=== PATIENT | female | born 1940 | race African-American/Black ===

== ENCOUNTER 2017-05-17 11:09 | Emergency (ER) | payer OTHER ==
[~2017-05-17] VITALS: Ht 162.6 cm; Wt 85.0 kg
[~2017-05-17 11:09] MED LIST: ALPR0.5T3 PO; ASPI1TAB57 PO; CENTCHW3 PO; CHOL5000 PO; CLAR10CA3 PO; ESTR2TAB PO; FISH1000; FURO80TA PO; GABA300C5 PO; L-ME1CAP2 PO; LISI40TA PO; MECL-62 PO; PIOG15TA5 PO; SITA50TA4 PO; ZOCO40TA PO
[2017-05-17 11:10] VITALS: BP 169/74; PULSE 66; RESP 16; TEMP 97.8; O2SAT 97
[2017-05-17] MEDS ORDERED: FURO40TA PO (11:34)
[2017-05-17] MEDS ORDERED: SITA50TA4 PO (11:34)
[2017-05-17] MEDS ORDERED: TRAM50TA PO (11:34)
[2017-05-17] MEDS ORDERED: SODIUM CHLORIDE 0.9% FLUSH 10 ML FLUSH IVF PRN (12:00)
[2017-05-17] MEDS ORDERED: oxyCODONE/ACETAMINOPHEN 5 MG/325 MG TAB PO ONE (12:00)
[2017-05-17] MEDS ORDERED: KETOROLAC TROMETHAMINE 30 MG/ML (IVP) VIAL IV PUSH ONE (12:00)
[2017-05-17 12:11] LABS: HEMATOCRIT 33.2 % (35.0-46.0); HEMOGLOBIN 10.5 GM/DL (11.6-15.3); MEAN CORPUSCULAR HEMOGLOBIN 27.3 PG (27.0-34.0); MEAN CORPUSCULAR HGB CONC 31.8 % (32.0-36.0); MEAN PLATELET VOLUME 7.7 FL (7.0-11.0); PLATELET COUNT 323 TH/MM3 (150-450); RED BLOOD COUNT 3.86 MIL/MM3 (4.00-5.30); RED CELL DISTRIBUTION WIDTH 13.8 % (11.6-17.2); WHITE BLOOD COUNT 7.2 TH/MM3 (4.0-11.0)
[2017-05-17 12:14] VITALS: RESP 16; O2SAT 97
[2017-05-17 12:17] LABS: CHLORIDE 102 MEQ/L (98-107); SODIUM (NA) 135 MEQ/L (136-145)
--- NOTE | 2017-05-17 12:19 | PD ---
HPI Chief Complaint: Dizziness Time Seen by Provider: 11:24 Travel History International Travel<30 days: No Contact w/Intl Traveler<30days: No Traveled to known affect area: No History of Present Illness HPI 76 yo female complains of left arm pain since yesterday. The day before she had pain in the region of the left neck into the arm as well. She states the pain is severe. She has had mild pain similar to the pain today however today' s is much more severe. Previously it was intermittent. constant. No chest pain or shortness of breath. The patient reports undergoing unremarkable nuclear medicine stress test about one year prior. The patient tried tramadol this morning which did not help. She denies trauma. No excessive use of the upper extremity. PFSH Past Medical History Arthritis: Yes Blood Disorders: No Anxiety: Yes Cancer: No High Cholesterol: Yes Diabetes: Yes (TYPE II) Patient Takes Glucophage: No Diminished Hearing: No Gastrointestinal Disorders: No GERD: Yes Genitourinary: No Hypertension: Yes Implanted Vascular Access Dvce: No Psychiatric: Yes Reproductive: No Respiratory: No Tetanus Vaccination: Unknown ?: Not Menopausal: Yes : 5 Para: 1 Miscarriage: 4 Past Surgical History Abdominal Surgery: Yes (TAMMIE, APPY) Appendectomy: Yes (1968) Section: No Cholecystectomy: Yes (1991) Eye Surgery: Yes (TIFFANY CAT) Gynecologic Surgery: Yes (HYSTERECTOMY 1972) Hysterectomy: Yes (1972) Oral Surgery: Yes (TONSILS) Tonsillectomy: Yes Other Surgery: Yes (SPINAL FUSION LS SPINE. PT UNSURE OF LOCATION, parathyroidotomy) Social History Alcohol Use: No Tobacco Use: No Substance Use: No Allergies-Medications (Allergen,Severity, Reaction): Coded Allergies: neomycin (Unverified Allergy, Severe, OPHTHALMIC, 05/17/17) ondansetron (Unverified Adverse Reaction, Intermediate, ELEVATED BP, ) sertraline (Unverified Adverse Reaction, Intermediate, NAUSEA, SHAKINESS, HEADACHE, 05/17/17) Reported Meds & Prescriptions Reported Meds & Active Scripts Active Ibuprofen 200 Mg Tab 200 Mg PO Q8HR Reported Tramadol (Tramadol HCl) 50 Mg Tab 50 Mg PO Q6H PRN Furosemide 40 Mg Tab 40 Mg PO MOWEFR Janumet Xr (Sitagliptin-Metformin ER) 50-1,000 Mg Tab 1 Tab PO BID Claritin (Loratadine) 10 Mg Cap 10 Mg PO DAILY Aspirin 81 (Aspirin) 81 Mg Tabdr 81 Mg PO DAILY Centrum Silver (Multiple Vitamins W/ Minerals) 1 Chw Chw 1 Tab PO DAILY Fish Oil (Leo-3 Fatty Acids) 1,000 Mg Cap 1,200 Vitamin D3 (Cholecalciferol) 5,000 Unit Cap 5,000 Units PO DAILY Alprazolam 0.5 Mg Tab 0.5 Mg PO Q8H PRN Meclizine (Meclizine HCl) 25 Mg Tab 25 Mg PO DIRECTED PRN Metanx (z-[id number]) 1 Cap 1 Tab PO Gabapentin 300 Mg Cap 300 Mg PO HS Zocor (Simvastatin) 40 Mg Tab 40 Mg PO DAILY Estradiol 2 Mg Tab 2 Mg PO DAILY Lisinopril 40 Mg Tab 40 Mg PO DAILY Pioglitazone (Pioglitazone HCl) 15 Mg Tab 15 Mg PO DAILY Review of Systems Except as stated in HPI: all other systems reviewed are Neg General / Constitutional: No: Fever Eyes: No: Blurred Vision Cardiovascular: No: Chest Pain or Discomfort Physical Exam Narrative GENERAL: 76-year-old female pleasant well-nourished well-developed Vital Signs Date Time Temp Pulse Resp B/P (MAP) Pulse Ox O2 Delivery O2 Flow Rate FiO2 05/17/17 12:38 62 16 139/65 (89) 98 05/17/17 12:14 16 97 Room Air 05/17/17 11:20 16 97 Room Air 05/17/17 11:10 97.8 66 16 169/74 (105) 97 SKIN: Warm and dry. HEAD: Atraumatic. Normocephalic. EYES: Pupils equal and round. No scleral icterus. No injection or drainage. ENT: No nasal bleeding or discharge. Mucous membranes pink and moist. NECK: Trachea midline. No JVD. CARDIOVASCULAR: Regular rate and rhythm. RESPIRATORY: No accessory muscle use. Clear to auscultation. Breath sounds equal bilaterally. GASTROINTESTINAL: Abdomen soft, non-tender, nondistended. Hepatic and splenic margins not palpable. MUSCULOSKELETAL: Extremities without clubbing, cyanosis, or edema. No obvious deformities. Minimal tenderness to palpation along the lateral mid shaft humerus. No gross deformity. 2+ radial artery pulse bilaterally. No significant overlying trauma. NEUROLOGICAL: Awake and alert. No obvious cranial nerve deficits. Motor grossly within normal limits. Five out of 5 muscle strength in the arms and legs. Normal speech. PSYCHIATRIC: Appropriate mood and affect; insight and judgment normal. Data Data Last Documented VS Vital Signs Date Time Temp Pulse Resp B/P (MAP) Pulse Ox O2 Delivery O2 Flow Rate FiO2 05/17/17 12:38 62 16 139/65 (89) 98 05/17/17 12:14 Room Air 05/17/17 11:10 97.8 Orders Orders Electrocardiogram (05/17/17 11:19) Electrocardiogram (05/17/17 11:46) Basic Metabolic Panel (Bmp) (05/17/17 11:46) Ckmb (Isoenzyme) Profile (05/17/17 11:46) Complete Blood Count With Diff (05/17/17 11:46) Magnesium (Mg) (05/17/17 11:46) Troponin I (05/17/17 11:46) Chest, Single Ap (05/17/17 11:46) Ecg Monitoring (05/17/17 11:46) Iv Access Insert/Monitor (05/17/17 11:46) Oximetry (05/17/17 11:46) Oxygen Administration (05/17/17 11:46) Sodium Chloride 0.9% Flush (Ns Flush) (05/17/17 12:00) Humerus (Min 2vws) (05/17/17 11:46) Shoulder, Complete (>2vws) (05/17/17 11:46) Us Arm Venous Doppler (05/17/17 ) Oxycodone-Acetamin 5-325 Mg (Percocet (05/17/17 12:00) Ketorolac Inj (Toradol Inj) (05/17/17 12:00) CKMB (05/17/17 11:50) CKMB% (05/17/17 11:50) Ed Discharge Order (05/17/17 13:23) Labs Laboratory Tests Test 05/17/17 11:50 White Blood Count 7.2 TH/MM3 Red Blood Count 3.86 MIL/MM3 Hemoglobin 10.5 GM/DL Hematocrit 33.2 % Mean Corpuscular Volume 86.0 FL Mean Corpuscular Hemoglobin 27.3 PG Mean Corpuscular Hemoglobin Concent 31.8 % Red Cell Distribution Width 13.8 % Platelet Count 323 TH/MM3 Mean Platelet Volume 7.7 FL CBC Comment AUTO DIFF Differential Total Cells Counted 100 Neutrophils % (Manual) 74 % Lymphocytes % 17 % Monocytes % 7 % Eosinophils % 1 % Basophils % 1 % Neutrophils # (Manual) 5.3 TH/MM3 Differential Comment FINAL DIFF MANUAL Platelet Estimate NORMAL Platelet Morphology Comment NORMAL Rouleau PRESENT Blood Urea Nitrogen 18 MG/DL Creatinine 0.99 MG/DL Random Glucose 116 MG/DL Calcium Level 9.4 MG/DL Magnesium Level 1.9 MG/DL Sodium Level 135 MEQ/L Potassium Level 4.1 MEQ/L Chloride Level 102 MEQ/L Carbon Dioxide Level 24.9 MEQ/L Anion Gap 8 MEQ/L Estimat Glomerular Filtration Rate 66 ML/MIN Total Creatine Kinase 125 U/L Creatine Kinase MB LESS THAN 0.5 NG/ML Troponin I LESS THAN 0.02 NG/ML MDM Medical Decision Making Medical Screen Exam Complete: Yes Emergency Medical Condition: Yes Medical Record Reviewed: Yes Differential Diagnosis DVT, arterial dissection, coronary disease, anxiety, bursitis, cellulitis, arthritis Narrative Course Last Impressions Shoulder X-Ray 05/17/17 1146 Signed Impressions: Service Date/Time: Wednesday, May 17, 2017 12:07 - CONCLUSION: No acute disease. Pedrito Sarabia MD Humerus X-Ray 05/17/17 1146 Signed Impressions: Service Date/Time: Wednesday, May 17, 2017 12:07 - CONCLUSION: No acute abnormality is seen. There is a 4 mm calcification seen anterior to the humeral head potentially representing a loose body in the bicipital tendon sheath given its location. Pedrito Sarabia MD Chest X-Ray 05/17/17 1146 Signed Impressions: Service Date/Time: Wednesday, May 17, 2017 12:07 - CONCLUSION: No acute disease. Pedrito Sarabia MD Ultrasound is unremarkable CBC & BMP Diagram 05/17/17 11:50 Calcium Level 9.4, Magnesium Level 1.9 Overall is concern for tendinitis and/or bursitis. Patient is diabetic and therefore not suitable for steroids. Given the age we'll try 200 milligrams of ibuprofen 3 times daily for 3 days. Patient to follow-up with orthopedics. Diagnosis Primary Impression: Bursitis Qualified Codes: M75.52 - Bursitis of left shoulder Additional Impression: Tendonitis Referrals: David Thurman MD call for appointment Patient Instructions: General Instructions Med/Other Pt SpecificInfo: Prescription(s) given Scripts Ibuprofen (Ibuprofen) 200 Mg Tab 200 MG PO Q8HR, #3 TAB 0 Refills Prov: Star Guerrero MD 05/17/17 Disposition: 01 DISCHARGE HOME Condition: Stable Star Guerrero MD May 17, 2017 12:19
[2017-05-17 12:20] LABS: CALCIUM 9.4 MG/DL (8.5-10.1)
[2017-05-17 12:21] LABS: BICARBONATE 24.9 MEQ/L (21.0-32.0); BLOOD UREA NITROGEN 18 MG/DL (7-18); GLUCOSE,RANDOM 116 MG/DL (74-106); MAGNESIUM 1.9 MG/DL (1.5-2.5)
[2017-05-17 12:24] LABS: CREATININE 0.99 MG/DL (0.50-1.00); GLOMERULAR FILTRATION RATE 66 ML/MIN (>89)
[2017-05-17 12:29] LABS: TROPONIN I LESS THAN 0.02 NG/ML (0.02-0.05)
[2017-05-17 12:38] VITALS: BP 139/65; PULSE 62; RESP 16; O2SAT 98
--- NOTE | 2017-05-17 12:46 | EKG ---
Date Performed: 05/17/2017 Time Performed: 11:32:02 PTAGE: 76 years EKG: Sinus rhythm Lateral precordial R wave progression is abnormal with small Q waves. This may well be due to change s in lead position and clinical correlation is suggested. PREVIOUS TRACING : 11/18/2007 08.32 DOCTOR: Josh Martinez Interpretating Date/Time 05/17/2017 12:45:27
--- NOTE | 2017-05-17 12:49 | RADRPT ---
EXAM DATE/TIME: 05/17/2017 12:07 [facility] COMPARISON: No previous studies available for comparison. INDICATIONS : No known injury. Woke up yesterday with pain from shoulder down to hand. MEDICAL HISTORY : Hypertension. Diabetes mellitus type II. SURGICAL HISTORY : Fusion, lumbar. ENCOUNTER: Initial ACUITY: 1 day PAIN SCORE: 10/10 LOCATION: Left Shoulder FINDINGS: A single view of the chest demonstrates the lungs to be symmetrically aerated without evidence of mas s, infiltrate or effusion. The cardiomediastinal contours are unremarkable. Osseous structures are intact. Spurs are seen in the thoracic spine. CONCLUSION: No acute disease. Pedrito Sarabia MD on May 17, 2017 at 12:47 Board Certified Radiologist. This report was verified electronically.
--- NOTE | 2017-05-17 12:49 | RADRPT ---
EXAM DATE/TIME: 05/17/2017 12:07 [facility] COMPARISON: No previous studies available for comparison. INDICATIONS : No known injury. Woke up yesterday with pain from shoulder down to hand. MEDICAL HISTORY : Hypertension. Diabetes mellitus type II. SURGICAL HISTORY : Fusion, lumbar. ENCOUNTER: Initial ACUITY: 1 day PAIN SCORE: 10/10 LOCATION: Left Shoulder FINDINGS: Multiple view examination of the left shoulder demonstrates no evidence of fracture or dislocation. The glenohumeral and acromioclavicular joints are maintained. There is normal range of motion betwee n internal and external rotation. Bony mineralization is normal. CONCLUSION: No acute disease. Pedrito Sarabia MD on May 17, 2017 at 12:48 Board Certified Radiologist. This report was verified electronically.
--- NOTE | 2017-05-17 12:51 | RADRPT ---
EXAM DATE/TIME: 05/17/2017 12:07 [facility] COMPARISON: SHOULDER LEFT COMPLETE (>2VWS), May 17, 2017, 12:07. INDICATIONS : No known injury. Woke up yesterday with pain from shoulder down to hand. MEDICAL HISTORY : Hypertension. Diabetes mellitus type II. SURGICAL HISTORY : Fusion, lumbar. ENCOUNTER: Initial ACUITY: 1 day PAIN SCORE: 10/10 LOCATION: Left Shoulder FINDINGS: No fracture seen. The glenohumeral and elbow joints are normally aligned. There is a small 4 mm calci fication seen anterior to the left humeral head which could be a small loose body within the bicipita l tendon sheath. CONCLUSION: No acute abnormality is seen. There is a 4 mm calcification seen anterior to the humeral head potenti ally representing a loose body in the bicipital tendon sheath given its location. Pedrito Sarabia MD on May 17, 2017 at 12:48 Board Certified Radiologist. This report was verified electronically.
--- NOTE | 2017-05-17 13:10 | RADRPT ---
EXAM DATE/TIME: 05/17/2017 12:40 [facility] COMPARISON: No previous studies available for comparison. INDICATIONS : Left arm pain. MEDICAL HISTORY : Hypercholesterolemia. Hypertension. Diabetes mellitus type 2. GERD. SURGICAL HISTORY : Tonsillectomy. Appendectomy. Cholecystectomy. Hysterectomy. Lumbar fusion. ENCOUNTER: Initial ACUITY: 1 day PAIN SCORE: 3/10 LOCATION: Left arm. FINDINGS: There is spontaneous flow documented in the brachial, basilic, cephalic, axillary, and subclavian vei ns. The vessels are compressible and augmentation response is documented. No filling defects are se en. The flow is phasic with respiration. Direction of flow in the jugular vein is caudal. CONCLUSION: No evidence of deep venous thrombosis within the left upper extremity. Keshav Valentin MD on May 17, 2017 at 13:07 Board Certified Radiologist. This report was verified electronically.
[2017-05-17 13:12] LABS: BASOPHILS 1 % (0-2); LYMPHOCYTES 17 % (9-44); MONOCYTES 7 % (0-8); NEUTROPHIL # MANUAL DIFF 5.3 TH/MM3 (1.8-7.7); POLYS (SEG NEUTROPHILS) 74 % (16-70)
[2017-05-17 13:13] LABS: ROULEAUX PRESENT (NORMAL)
[2017-05-17] MEDS ORDERED: IBUP200T47 PO (13:24)
== END 2017-05-17 14:00 | disposition home or self-care (01) ==
LOC: PHED 11:09
DX: M75.52 Bursitis of left shoulder (principal); M77.9 Enthesopathy, unspecified; R94.31 Abnormal electrocardiogram [ECG] [EKG]; F41.9 Anxiety disorder, unspecified; E78.00 Pure hypercholesterolemia, unspecified; E11.9 Type 2 diabetes mellitus without complications; K21.9 Gastro-esophageal reflux disease without esophagitis; I10 Essential (primary) hypertension
CPT/HCPCS: 71045; 73030; 73060; 80048; 82550; 82552; 83735; 84484; 85007; 85027; 93005; 93971; 96374; 99285; J1885

== ENCOUNTER 2017-05-20 15:13 | Emergency (ER) | payer OTHER ==
[~2017-05-20] VITALS: Ht 160 cm; Wt 85.4 kg
[~2017-05-20 15:13] MED LIST changes: +FURO40TA PO; -FURO80TA PO; +IBUP200T47 PO; +TRAM50TA PO
[2017-05-20 15:20] VITALS: BP 176/72; PULSE 74; RESP 18; TEMP 97.7; O2SAT 99
[2017-05-20] MEDS ORDERED: PRED20 PO (15:57)
[2017-05-20] MEDS ORDERED: NORC5TAB PO (15:57)
--- NOTE | 2017-05-20 15:58 | PD ---
HPI Chief Complaint: Pain: Acute or Chronic Time Seen by Provider: 15:49 Travel History International Travel<30 days: No Contact w/Intl Traveler<30days: No Traveled to known affect area: No History of Present Illness HPI 76-year-old female complaining of left shoulder pain left arm pain. Patient states that she has intermittent sharp shooting pain on left upper arm for the past 6 months. Patient states that the pain got worse for the past 4 days. Patient states the pain is sharp shooting pain radiating from the left shoulder pad down the left arm. Patient has history of neck problem in the past. Patient was seen by Dr. Layne, neurosurgeon and had back fusion in the past. Patient states that she had MRI done of the neck in the past however that did not need surgery. Patient denies any recent injury. Patient was seen in emergency room 3 days ago and had x-ray of the shoulder and blood test done which were normal. Patient was given prescription for ibuprofen 200 mg 3 times a day for pain however without improvement of the pain. Patient has pending appointment with orthopedist. Patient states that she has been taking tramadol without relief of the pain. PFSH Past Medical History Arthritis: Yes Blood Disorders: No Anxiety: Yes Cancer: No High Cholesterol: Yes Diabetes: Yes (TYPE II) Patient Takes Glucophage: No Diminished Hearing: No Gastrointestinal Disorders: No GERD: Yes Genitourinary: No Hypertension: Yes Implanted Vascular Access Dvce: No Psychiatric: Yes Reproductive: No Respiratory: No Menopausal: Yes : 5 Para: 1 Miscarriage: 4 Past Surgical History Abdominal Surgery: Yes (TAMMIE, APPY) Appendectomy: Yes (1968) Section: No Cholecystectomy: Yes (1991) Eye Surgery: Yes (TIFFANY CAT) Gynecologic Surgery: Yes (HYSTERECTOMY 1972) Hysterectomy: Yes (1972) Oral Surgery: Yes (TONSILS) Tonsillectomy: Yes Other Surgery: Yes (SPINAL FUSION LS SPINE. PT UNSURE OF LOCATION, parathyroidotomy) Social History Alcohol Use: No Tobacco Use: No Substance Use: No Allergies-Medications (Allergen,Severity, Reaction): Coded Allergies: neomycin (Verified Allergy, Severe, OPHTHALMIC, 05/20/17) ondansetron (Verified Adverse Reaction, Intermediate, ELEVATED BP, 05/20/17 ) sertraline (Verified Adverse Reaction, Intermediate, NAUSEA, SHAKINESS, HEADACHE, 05/20/17) Reported Meds & Prescriptions Reported Meds & Active Scripts Active Gaffney (Hydrocodone-Acetaminophen) 5 Mg-325 Mg Tab 1 Tab PO Q6H PRN Prednisone 20 Mg Tab 20 Mg PO DAILY Ibuprofen 200 Mg Tab 200 Mg PO Q8HR Reported Tramadol (Tramadol HCl) 50 Mg Tab 50 Mg PO Q6H PRN Furosemide 40 Mg Tab 40 Mg PO MOWEFR Janumet Xr (Sitagliptin-Metformin ER) 50-1,000 Mg Tab 1 Tab PO BID Claritin (Loratadine) 10 Mg Cap 10 Mg PO DAILY Aspirin 81 (Aspirin) 81 Mg Tabdr 81 Mg PO DAILY Centrum Silver (Multiple Vitamins W/ Minerals) 1 Chw Chw 1 Tab PO DAILY Fish Oil (Shipman-3 Fatty Acids) 1,000 Mg Cap 1,200 Vitamin D3 (Cholecalciferol) 5,000 Unit Cap 5,000 Units PO DAILY Alprazolam 0.5 Mg Tab 0.5 Mg PO Q8H PRN Meclizine (Meclizine HCl) 25 Mg Tab 25 Mg PO DIRECTED PRN Metanx (b-[id number]-Umzgz) 1 Cap 1 Tab PO Gabapentin 300 Mg Cap 300 Mg PO HS Zocor (Simvastatin) 40 Mg Tab 40 Mg PO DAILY Estradiol 2 Mg Tab 2 Mg PO DAILY Lisinopril 40 Mg Tab 40 Mg PO DAILY Pioglitazone (Pioglitazone HCl) 15 Mg Tab 15 Mg PO DAILY Review of Systems General / Constitutional: No: Fever Eyes: No: Visual changes HENT: No: Headaches Cardiovascular: No: Chest Pain or Discomfort Respiratory: No: Shortness of Breath Gastrointestinal: No: Abdominal Pain Genitourinary: No: Dysuria Musculoskeletal: Positive: Pain Skin: No Rash Neurologic: No: Weakness Psychiatric: No: Depression Endocrine: No: Polydipsia Hematologic/Lymphatic: No: Easy Bruising Physical Exam Narrative GENERAL: Well-nourished, well-developed patient. SKIN: Focused skin assessment warm/dry. HEAD: Normocephalic. EYES: No scleral icterus. No injection or drainage. NECK: Supple, trachea midline. No JVD or lymphadenopathy. CARDIOVASCULAR: Regular rate and rhythm without murmurs, gallops, or rubs. RESPIRATORY: Breath sounds equal bilaterally. No accessory muscle use. GASTROINTESTINAL: Abdomen soft, non-tender, nondistended. MUSCULOSKELETAL: Patient has mild to moderate tenderness to palpation left shoulder pad area. No rash noted. Full range of motion of the left shoulder. No tenderness in palpation left shoulder joint. Full range of motion of left upper extremity. Sensory motor function distally intact. Good radial pulses. BACK: Nontender without obvious deformity. No CVA tenderness. Neurologic exam: Normal. Data Data Last Documented VS Vital Signs Date Time Temp Pulse Resp B/P (MAP) Pulse Ox O2 Delivery O2 Flow Rate FiO2 05/20/17 15:20 97.7 74 18 176/72 (106) 99 Orders Orders Ed Discharge Order (05/20/17 15:58) [facility] Medical Decision Making Medical Screen Exam Complete: Yes Emergency Medical Condition: Yes Medical Record Reviewed: Yes Differential Diagnosis Differential diagnosis including cervical radiculopathy, muscle spasm, bursitis , tendinitis. Narrative Course 76 years old female with pain on the shoulder and radiated down the left arm. History of neck pain in the past. Diagnosis Primary Impression: Cervical radiculopathy Patient Instructions: General Instructions Additional Instructions: Take medication as directed. Accu-Chek blood sugar twice a day while on prednisone. Follow-up neurologist. Return if worse. Med/Other Pt SpecificInfo: Prescription(s) given Scripts Hydrocodone-Acetaminophen (Gaffney) 5 Mg-325 Mg Tab 1 TAB PO Q6H Y for PAIN, #20 TAB 0 Refills Prov: Dexter Romero MD 05/20/17 Prednisone (Prednisone) 20 Mg Tab 20 MG PO DAILY, #10 TAB 0 Refills Prov: Dexter Roemro MD 05/20/17 Disposition: 01 DISCHARGE HOME Condition: Stable Dexter Romero MD May 20, 2017 15:57
== END 2017-05-20 16:20 | disposition home or self-care (01) ==
LOC: PHEFT 15:13
DX: M54.12 Radiculopathy, cervical region (principal); I10 Essential (primary) hypertension; E78.00 Pure hypercholesterolemia, unspecified; E11.9 Type 2 diabetes mellitus without complications; F41.9 Anxiety disorder, unspecified; Z88.8 Allergy status to other drugs, medicaments and biological substances; Z79.899 Other long term (current) drug therapy
CPT/HCPCS: 99283

== ENCOUNTER 2017-05-22 13:45 | Emergency (ER) | payer OTHER ==
[~2017-05-22] VITALS: Ht 160 cm; Wt 84.9 kg
[~2017-05-22 13:45] MED LIST changes: +NORC5TAB PO; +PRED20 PO
[2017-05-22 13:58] VITALS: BP 195/74; PULSE 77; RESP 16; TEMP 97.8; O2SAT 99
[2017-05-22 16:14] VITALS: BP 156/74
[2017-05-22] MEDS ORDERED: DEXAMETHASONE SOD PHOS 4 MG/ML VIAL IM ONE (16:15)
[2017-05-22] MEDS ORDERED: CYCL5TAB PO (16:26)
[2017-05-22] MEDS ORDERED: TRAM50 PO (16:26)
--- NOTE | 2017-05-22 16:27 | PD ---
HPI Chief Complaint: Pain: Acute or Chronic Time Seen by Provider: 15:58 Travel History International Travel<30 days: No Contact w/Intl Traveler<30days: No Traveled to known affect area: No History of Present Illness HPI 76-year-old female here requesting a change in her pain medication. She reports she is unable to take the [place] that was prescribed 2 days ago as it makes her vomit. She also reports she is unable to take Zofran because it causes hypertension. She has a history of cervical radiculopathy and is awaiting a follow-up appointment with neurosurgeon this week. She denies worsening symptoms, but reports continued left upper back and arm pain. The pain originates in the left trapezius region and radiates to the elbow. This is similar to pain in the past. She has been seen twice in the last several days for this. Her first visit she had an extensive cardiac workup and was discharged home with 200 mg ibuprofen which did not relieve the pain and prompted her second visit where she was diagnosed with cervical radiculopathy and sent home with [place]. She is requesting Ultram as that has worked in the past. She denies chest pain, palpitations, shortness of breath. Symptom severity is moderate. Aggravated by movement. No alleviating factors. PFSH Past Medical History Hx Anticoagulant Therapy: Yes Arthritis: Yes Blood Disorders: No Anxiety: Yes Cancer: No Cardiovascular Problems: Yes (htn on meds) High Cholesterol: Yes Diabetes: Yes (type 2) Patient Takes Glucophage: No Diminished Hearing: No Gastrointestinal Disorders: No GERD: Yes Genitourinary: No Hypertension: Yes Implanted Vascular Access Dvce: No Psychiatric: Yes Reproductive: No Respiratory: No Tetanus Vaccination: Unknown ?: Not Menopausal: Yes : 5 Para: 1 Miscarriage: 4 Past Surgical History Abdominal Surgery: Yes (TAMMIE, APPY) Appendectomy: Yes (1968) Section: No Cholecystectomy: Yes (1991) Eye Surgery: Yes (TIFFANY CAT) Gynecologic Surgery: Yes (HYSTERECTOMY 1972) Hysterectomy: Yes Oral Surgery: Yes (TONSILS) Tonsillectomy: Yes Other Surgery: Yes (SPINAL FUSION LS SPINE. PT UNSURE OF LOCATION, parathyroidotomy) Social History Alcohol Use: No Tobacco Use: No Substance Use: No Allergies-Medications (Allergen,Severity, Reaction): Coded Allergies: neomycin (Verified Allergy, Severe, OPHTHALMIC, 05/22/17) acetaminophen (Verified Allergy, Intermediate, n/v, 05/22/17) hydrocodone (Verified Allergy, Intermediate, n/v, 05/22/17) ondansetron (Verified Adverse Reaction, Intermediate, ELEVATED BP, 05/22/17 ) sertraline (Verified Adverse Reaction, Intermediate, NAUSEA, SHAKINESS, HEADACHE, 05/22/17) Reported Meds & Prescriptions Reported Meds & Active Scripts Active Reported Tramadol (Tramadol HCl) 50 Mg Tab 50 Mg PO Q6H PRN Furosemide 40 Mg Tab 40 Mg PO MOWEFR Janumet Xr (Sitagliptin-Metformin ER) 50-1,000 Mg Tab 1 Tab PO BID Claritin (Loratadine) 10 Mg Cap 10 Mg PO DAILY Aspirin 81 (Aspirin) 81 Mg Tabdr 81 Mg PO DAILY Centrum Silver (Multiple Vitamins W/ Minerals) 1 Chw Chw 1 Tab PO DAILY Fish Oil ([place]-3 Fatty Acids) 1,000 Mg Cap 1,200 Vitamin D3 (Cholecalciferol) 5,000 Unit Cap 5,000 Units PO DAILY Alprazolam 0.5 Mg Tab 0.5 Mg PO Q8H PRN Meclizine (Meclizine HCl) 25 Mg Tab 25 Mg PO DIRECTED PRN Metanx (f-Ethixkfrbstq-Pnkct) 1 Cap 1 Tab PO Gabapentin 300 Mg Cap 300 Mg PO HS Zocor (Simvastatin) 40 Mg Tab 40 Mg PO DAILY Estradiol 2 Mg Tab 2 Mg PO DAILY Lisinopril 40 Mg Tab 40 Mg PO DAILY Pioglitazone (Pioglitazone HCl) 15 Mg Tab 15 Mg PO DAILY Review of Systems Except as stated in HPI: all other systems reviewed are Neg General / Constitutional: No: Fever Eyes: No: Visual changes HENT: No: Headaches Cardiovascular: No: Chest Pain or Discomfort Respiratory: No: Shortness of Breath Gastrointestinal: No: Abdominal Pain Genitourinary: No: Dysuria Physical Exam Narrative GENERAL: Alert and well-appearing 76-year-old female. Sitting erect in the bed in no apparent distress. She appears comfortable conversing with family member in the room SKIN: Warm and dry. No rash HEAD: Normocephalic. EYES: No scleral icterus. No injection or drainage. NECK: Supple, trachea midline. No cervical midline tenderness. +TTP left trapezius muscle. CARDIOVASCULAR: Regular rate and rhythm without murmurs, gallops, or rubs. RESPIRATORY: Breath sounds equal bilaterally. No accessory muscle use. GASTROINTESTINAL: Abdomen soft, non-tender, nondistended. MUSCULOSKELETAL: No cyanosis, or edema. Patient moves the left upper extremity throughout the exam without difficulty. No joint swelling. Normal sensation. 2+ pulses. Brisk cap refill. BACK: Nontender without obvious deformity. No CVA tenderness. Data Data Last Documented VS Vital Signs Date Time Temp Pulse Resp B/P (MAP) Pulse Ox O2 Delivery O2 Flow Rate FiO2 05/22/17 13:58 97.8 77 16 195/74 (114) 99 Orders Orders Dexamethasone Inj (Decadron Inj) (05/22/17 16:15) [facility] Medical Decision Making Medical Screen Exam Complete: Yes Emergency Medical Condition: Yes Differential Diagnosis Cervical radiculopathy, medication none compliance, adverse medication reaction Narrative Course 76-year-old female here requesting change in her pain medication. She is well appearing. No cardiac symptoms. Her exam is consistent with cervical radiculopathy. Patient has multiple adverse reactions to pain medications. Ultram is the only pain meds she has been able to tolerate in the past. Treatment options for her pain were discussed at length with patient. She will be given a shot of Decadron here in the ED. she will be discharged home with a prescription for Ultram and Flexeril as needed for pain and muscle spasm. She is to follow-up with neurosurgeon this week. Diagnosis Primary Impression: Cervical radiculopathy Additional Impression: Adverse reaction to drug Qualified Codes: T88.7XXA - Unspecified adverse effect of drug or medicament, initial encounter Referrals: Frankie Menjivar MD, Federico Carlos MD Neurosurgeon Additional Instructions: Ultram/tramadol as needed for pain. Flexeril as needed for muscle spasm. Call and schedule an appointment with neurosurgeon tomorrow. Apply ice and/or heat for symptom relief Scripts Cyclobenzaprine (Flexeril) 5 Mg Tab 5 MG PO TID for Muscle Spasm, #12 TAB 0 Refills Prov: Breanne Ferrer 05/22/17 Tramadol (Ultram) 50 Mg Tab 1-2 TAB PO Q6HR Y for PAIN SCALE 7 TO 10, #15 TAB 0 Refills Prov: Breanne Ferrer 05/22/17 Disposition: 01 DISCHARGE HOME Condition: Stable Breanne Ferrer May 22, 2017 16:27
== END 2017-05-22 16:42 | disposition home or self-care (01) ==
LOC: PHEFT 13:45
DX: M54.12 Radiculopathy, cervical region (principal); T88.7XXA Unspecified adverse effect of drug or medicament, initial encounter; M19.90 Unspecified osteoarthritis, unspecified site; I10 Essential (primary) hypertension; E78.00 Pure hypercholesterolemia, unspecified; E11.9 Type 2 diabetes mellitus without complications; K21.9 Gastro-esophageal reflux disease without esophagitis; Z79.82 Long term (current) use of aspirin; Z79.899 Other long term (current) drug therapy
CPT/HCPCS: 96372; 99283; J1100